=== PATIENT | female | born 1950 | race Caucasian/White ===

== ENCOUNTER 2016-06-05 01:48 | Emergency (ER) | payer MEDICAID, OTHER ==
[~2016-06-05] VITALS: Ht 157.5 cm; Wt 108.9 kg
[2016-06-05 01:57] VITALS: BP 188/98
[2016-06-05] MEDS ORDERED: LIDOCAINE 1% INJ 50 ML MDV IJ ONE (04:00)
--- NOTE | 2016-06-05 04:29 | NUR ---
MD CLIFFORD AT BED SIDE FOR CLOSED REDUCTION OF THE RIGHT FOOT DIGIT 5 TOE. MD CLIFFORD REDUCED TOE WITHOUT INCIDENT
== END 2016-06-05 04:57 | disposition home or self-care (01) ==
LOC: ER 01:50
DX: S92.351A Displaced fracture of fifth metatarsal bone, right foot, initial encounter for closed fracture (principal); I10 Essential (primary) hypertension; M19.071 Primary osteoarthritis, right ankle and foot; Z88.6 Allergy status to analgesic agent; W22.8XXA Striking against or struck by other objects, initial encounter; Y93.01 Activity, walking, marching and hiking; Y92.89 Other specified places as the place of occurrence of the external cause; Y99.9 Unspecified external cause status
CPT/HCPCS: 73630-TC; A4606; J3490; Z7610